=== PATIENT | female | born 1965 | race Caucasian/White ===

== ENCOUNTER 2016-04-29 10:25 | Emergency (ER) | payer OTHER | END 2016-04-29 10:30 | disposition home or self-care (01) | LOC: ER 10:25 | DX: S00.86XA Insect bite (nonvenomous) of other part of head, initial encounter (principal); R22.0 Localized swelling, mass and lump, head; J45.909 Unspecified asthma, uncomplicated; F41.9 Anxiety disorder, unspecified; F17.200 Nicotine dependence, unspecified, uncomplicated; Z86.718 Personal history of other venous thrombosis and embolism; Z88.1 Allergy status to other antibiotic agents; W57.XXXA Bitten or stung by nonvenomous insect and other nonvenomous arthropods, initial encounter | CPT/HCPCS: 99283; A9270-GY ==